=== PATIENT | female | born 1965 | race Caucasian/White ===

== ENCOUNTER → 2024-01-22 | Outpatient (CLI) | payer MEDICAID ==
[2024-01-22 14:03] VITALS: BP 165/80; PULSE 83; RESP 17; TEMP 98.4
--- NOTE | 2024-01-22 14:42 | P.PN ---
Progress Note - Text Progress Note Date: 01/22/24 Chief complaint: The patient presented for renewal of her HRT and for her well woman examination. HPI:This is a 66-year-old -1-3-2 with an LMP of 2010. Patient states she is here to renew her HRT medications. She has been on HRT for 7 years. She is status post vaginal hysterectomy with BSO in 2010. She states she started taking HRT 7 years ago for her heart, joints and it has been helpful for her sexual activity. She previously was prescribed HRT by Dr. Watson and more recently by Dr. Remedios Villalobos. Dr. Villalobos apparently has retired. Her last pelvic exam was in approximately 2019. Past medical history: She states she is taking no prescription medications other than her HRT. 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 Following her hysterectomy in 2010, she was told she had an PR and states she was on 5 heart medications after this. She states the PR diagnosis was a misdiagnosis and she stopped the heart medications. She states she is not treated for hypertension, but her blood pressure can get very high when she gets upset. Medical history is incomplete and I was not able to complete the medical history since she left the office suddenly. Past surgical history: Breast reduction surgery in 2019, robotically assisted vaginal hysterectomy in 2010 with BSO and appendectomy. section for twins.. Surgical history was not completed since she left the office suddenly. Past [employer] history: section for twins. She did have problems with endometriosis and also had 3 spontaneous abortions. When I discussed I do not feel she is a good candidate for continuing hormone replacement therapy because of her past medical history, she became very upset and left the office suddenly. The above history is incomplete. Physical exam: Blood pressure 165/80, height 5 feet 6 inches, weight 233 pounds, BMI 37.6, temperature 98.4, pulse 83, pulse oximeter 98%. The patient left the office prior to any further physical examination. Impression: 1. 66-year-old menopausal female who has been on HRT as prescribed by other caregivers. History of DVT and some type of genetic clotting disorder. 2. Elevated blood pressure and she states she is not being treated for hypertension. 3. Possible heart condition and she states her PR was misdiagnosed. 4. Incomplete database. Recommendations: 1. I do not feel she is a good candidate for HRT because of her history of DVT and some type of genetic clotting disorder. I have discussed this with the patient along with the increased risks of cardiac attack, stroke, blood clots, and breast cancer with HRT. The fact that she has taken HRT for several years as prescribed by other caregivers does not mean that HRT can be safely given in her situation. After discussing this with the patient, she became very upset and left the office suddenly prior to completing her history questions and no physical exam other than the above vitals was performed. [address]. [address] she is left the office indicates she no longer wants to come here for her gynecologic care. I did recommend that she establish with a primary care physician for her ongoing medical care. Time spent with the patient: 20 minutes
== END ==
LOC: WWCWWP 13:19
PROVIDERS: ATTEND Obstetrics & Gynecology
DX: I10 Essential (primary) hypertension (principal); E11.9 Type 2 diabetes mellitus without complications; F12.90 Cannabis use, unspecified, uncomplicated; Z78.0 Asymptomatic menopausal state